=== PATIENT | female | born 1990 | race Caucasian/White ===

== ENCOUNTER 2016-10-26 06:00 | Emergency (ER) | payer SELFPAY ==
[2016-10-26] MEDS ORDERED: KLONOPIN0.5 M1 PO ×2 (06:23→06:33)
[2016-10-26] MEDS ORDERED: LEXAPRO20 M2 PO (06:24)
[2016-10-27] MEDS ORDERED: SEROQUEL (07:50)
[2016-10-27] MEDS ORDERED: SEROQUEL50 M1 PO (08:23)
== END 2016-10-26 07:28 ==
LOC: EDMED 06:00
DX: F41.9 Anxiety disorder, unspecified (principal)

== ENCOUNTER 2016-10-27 07:30 | Emergency (ER) | payer SELFPAY ==
[~2016-10-27 07:30] MED LIST: KLONOPIN0.5 M1 PO; LEXAPRO20 M2 PO
[2016-10-27] MEDS ORDERED: SEROQUEL (07:50)
[2016-10-27] MEDS ORDERED: SEROQUEL50 M1 PO (08:23)
== END 2016-10-27 09:32 ==
LOC: EDMED 07:30
DX: G47.00 Insomnia, unspecified (principal); F41.9 Anxiety disorder, unspecified; F43.10 Post-traumatic stress disorder, unspecified; Z76.0 Encounter for issue of repeat prescription; Z79.899 Other long term (current) drug therapy